=== PATIENT | male | born 1960 | race Caucasian/White ===

== ENCOUNTER → 2024-10-29 09:58 | Outpatient (CLI) | payer BC, SELFPAY ==
--- NOTE | 2024-10-29 10:00 | DI.US.S_ITS ---
PROCEDURE: US PERIPH VENOUS LOW EXTREM RT INDICATIONS: right lower leg swelling TECHNIQUE: Real-time imaging, as well as color and pulse Doppler interrogation, were performed of the lower extremity deep veins from the inguinal ligament to the popliteal fossa, with documentation of the visualized calf veins. COMPARISON: None. FINDINGS: The common femoral, femoral, popliteal, and the visualized calf veins are normally compressible, and free of intraluminal thrombus. Color and pulse Doppler demonstrate normal phasic intraluminal flow. There is normal augmentation response to distal compression maneuver. There are 2 fluid collections within the inter fascial planes measuring 4.0 x 1.5 x 1.0 cm and 3.3 x 1.6 x 0.5 cm. IMPRESSION: No findings of lower extremity deep venous thrombosis. Fluid collections as described above, correlate with trauma versus ruptured Mendez's cyst. Dictated by: Willie Roque M.D. on 10/29/2024 at 12:08 Approved by: Willie Roque M.D. on 10/29/2024 at 12:13
== END ==
PROVIDERS: Referring Provider Nurse Practitioner Family; Visit Provider Nurse Practitioner Family
DX: M79.89 Other specified soft tissue disorders (principal)
CPT/HCPCS: 93971